=== PATIENT | male | born 1940 | race Two or more races ===

== ENCOUNTER 2023-10-08 09:57 | Inpatient (IN) | payer MEDICARE, OTHER, SELFPAY ==
[2023-10-06] VITALS (7 sets, daily range): BP systolic 112–144; BP diastolic 66–93; BMI 29.7; BMI 32.9
--- NOTE | 2023-10-06 12:36 | ED.GENMED ---
History of Present Illness
General
Chief Complaint: Abdominal Pain
Source: patient and spouse
Exam Limitations: none
Time Seen by Provider: 10/06/23 12:24
Nursing documentation reviewed up to this point in time: agreed with
History of Present Illness
History of Present Illness:
Patient to ED with complaint of abdominal pain, constipation. states he was seen by staff at Dr. Corral's office of hector cath change. Since then urine output has been low and he complains of abd. pain. reports dark urine. He has not
had BM 'in a few days'. Taking stool softeners without improvement. Denies fever/chills, vomiting, diarrhea. +nausea. Brought to ED by spouse for eval.
Past History
Past History
ED Past Medical History: HTN, Hypercholesterolemia, IDDM and Other (chronic indwelling hector, dementia)
ED Past Surgical History: None
Social History
Tobacco: Non-smoker
Alcohol: None
Drug: None
Personal:
Living: with family
Review of Systems
Review of Systems
Allergies reviewed?: Yes
All Other Systems: ROS reviewed and negative except as documented in HPI and ROS
Constitutional: Reports no symptoms
EENT: Reports no symptoms
Respiratory: Reports no symptoms
Cardiac: Reports no symptoms
ABD/GI: Reports abdominal pain and nausea
: Reports dark urine
Musculoskeletal: Reports no symptoms
Skin: Reports no symptoms
Neurological: Reports no symptoms
Psychiatric: Reports no symptoms
Phy Exam
General Physical Exam
General Presentation: moderate distress
General age: appears stated age
General Skin: warm and dry
General Habitus: normal
General Mental: alert
General Hydration: appears well hydrated
Cardiovascular Exam
Cardiovascular Exam: regular rate/rhythm and no edema
Pulmonary Exam
Pulmonary Exam: lungs clear and no respiratory distress
Gastrointestinal Exam
Gastrointestinal Exam: normal bowel sounds, no organomegaly and distended
Palpation: left lower quadrant: Severe tenderness and right lower quadrant: Severe tenderness
Musculoskeletal Exam
Musculoskeletal Exam: full ROM and neuro vasc intact
Skin Exam
Skin Exam: normal color, warm/dry and no rash
Psychiatric Exam
Psychiatric Exam: normal mood/affect
Course
Orders/Labs/Results
Orders:
Orders
10/06/23 12:35
Bladder Scan- Treatment ONCE
Abdomen Xray - 1 View [CR Abdomen - 1 View] Urgent
Comment:
Reason For Exam: constipation
10/06/23 13:20
Complete Blood Count/With Diff Urgent
Comprehensive Metabolic Panel Urgent
Lipase Urgent
Urinalysis Reflex To Culture Urgent
Date Specimen was Collected: 10/06/23
Time Specimen was Collected: 13:06
Urine Microscopic Reflex Cult Urgent
Urine Culture Urgent
DESTINY Source: U
Specimen Description:
Date Specimen was Collected: 10/06/23
Time Specimen was Collected: 13:06
10/06/23 Dinner
2000 calorie (17 carb) Diabetic
At Your Request: Full Participation
10/06/23 15:10
Lactic Acid Urgent
10/06/23 15:11
Notify MD As Directed
Notify physician if: Once Med Rec is completed. Thank you.
10/06/23 15:28
Magnesium Citrate [Citroma] 300 ml PO ONCE ONE
10/06/23 15:29
Admit/Transfer Patient As Directed
Co-Sign Provider:
Level of Care: Observation services
Assign to:: Medical/Surgical
Physician / Group: Hospitalist
Diagnosis: UTI, Retention, Constipation
PRN Pain Medication Management As Directed
May give lesser potent ordered pain med per pt: Yes
preference::
Protocol:: Medication orders for pain may be administered in a
manner that supports deferring to patient preference
when the pt is:
-Requesting an ordered lesser potent pain medication.
Least to most potent pain medications are defined as:
acetaminophen < NSAID < tramadol < opioids (morphine,
oxycodone, hydromorphone).
- Requesting a lesser dose of the same medication IF
ORDERED.
- Requesting a less intrusive route of administration
if both routes are prescribed by the provider (PO <
IV).
10/06/23 15:33
Code Status As Directed
Resuscitation Status: Full Code
10/06/23 15:36
0.9% Sodium Chloride 1000 ml [Nss] 1,000 ml IV BOLUS
10/06/23 16:00
CefTRIAXone [Rocephin] 1,000 mg IV Q24H
Sterile Water [Sterile Water For Injection] 10 ml IV Q24H
10/06/23 16:46
Bisacodyl [Dulcolax] 10 mg RECTAL [id number] PRN
Dextrose 50%-Water [Dextrose 50% Syringe] 12.5 grams IV [id number] PRN
Glucagon [GlucaGen] 1 mg IM PRN PRN
Insulin Aspart Corrective Low [Novolog Flexpen-Low Resistance] See Protocol SC AC
10/06/23 16:46
Activity As Directed
Activity Level: Ambulate
Bedside Glucose Monitoring As Directed
Frequency: AC&HS
Additional Instructions:: Change to q6h if pt on TPN, tube feeding or not eating
Vital Signs As Directed
Frequency: Per unit guidelines
DX Deep Vein Thrombosis Video Routine
10/06/23 18:00
Enoxaparin Sodium [Lovenox] 40 mg SC QPM
10/06/23 20:00
Docusate Sodium [Colace] 100 mg PO BID
Sennosides [Senokot] 8.6 mg PO BID
10/07/23 06:00
Basic Metabolic Panel IN AM
Complete Blood Count/No Diff IN AM
Glycohemoglobin (HgbA1c) IN AM
Magnesium IN AM
TSH IN AM
Vitamin B12 IN AM
10/07/23 08:00
Finasteride [Proscar] 5 mg PO DAILY
Polyethylene Glycol Powder [Miralax] 17 grams PO DAILY
Abnormal Lab Results
10/06/23 10/06/23
13:20 15:10
WBC 17.0 H 10^3/uL
(4.8-10.8)
RDW 15.2 H %
(11.5-14.5)
Abs Immat Gran (auto) 0.1 H 10^3/uL
(0-0.05)
Absolute Neuts (auto) 15.2 H 10^3/uL
(1.4-6.5)
Absolute Lymphs (auto) 0.8 L 10^3/uL
(1.2-3.4)
Absolute Monos (auto) 0.9 H 10^3/uL
(0.1-0.6)
Neutrophils % 89.2 H %
(42.2-75.2)
Lymphocytes % 4.8 L %
(20.5-51.1)
Carbon Dioxide 20 L mmol/L
(22-30)
BUN 71 H mg/dl
(9-20)
Creatinine 3.5 H mg/dL
(0.7-1.3)
Glucose 232 H mg/dl
(70-99)
Lactic Acid 2.7 H mmol/L
(0.7-2.0)
Ur Occult Blood Reflex 4+ A
(Negative)
Leukocyte Esterase Rfl 2+ A
(Negative)
Urine RBC 50-60 A /HPF
(0-2)
Urine Bacteria (Reflex) Many A
(Negative)
Urine Glucose 3+ A
(Negative)
10/06/23 13:20
10/06/23 13:20
Vital Signs
Initial and Last Documented VS:
Initial Vital Signs
Temp Pulse Resp BP Pulse Ox
98.2 F 115 20 122/77 97
10/06/23 11:32 10/06/23 11:32 10/06/23 11:32 10/06/23 11:32 10/06/23 11:32
Last Documented Vital Signs
Temp Pulse Resp BP Pulse Ox
98.0 F 105 16 141/86 96
10/06/23 17:00 10/06/23 17:00 10/06/23 17:00 10/06/23 17:00 10/06/23 17:00
*Critical Care Note
Total Time (30-74mins, 75-104mins- exclusive of procedures): Not Applicable
Update Note
Update Note:
Patient brought to ED by spouse for worsening lower abdominal pain, constipation, decreased urine output, dark urine. States hector cath was replaced on saturday and symptoms started shortly after that. Denies fever/chills, vomiting. Bladder scan
on arrival >1000cc. Hector cath replaced by RN, drained immediate 1L of urine. Abdomen now soft, nontender. Labs reviewed. Creat of 3.4 today. Will admit for INOCENCIO.
ED Attending Note
-
Portions of this chart may have been created with voice recognition software.� Occasional wrong word or��sound alike� substitutions may have occurred due to the inherent limitations of voice recognition software.
Discharge Plan
Departure
Patient Disposition: Admit
Date of Disposition: 10/06/23
Time of Disposition: 14:55
Admit to: Med/Surg
Presentation/result/management discussed w/ accepting MD/DO: Hospitalist
Patient with high blood pressure during this ER visit?: Yes
Condition: Fair
Covid-19: Not Applicable
Discharge Problem:
INOCENCIO (acute kidney injury)
Interventions
Interventions:
*Risk Screen - Suicide Last Done: 10/06/23 11:32
*General Assessment Last Done: 10/06/23 13:07
*Neglect/Abuse Screening Last Done: 10/06/23 11:32
ED- Fall Risk Assessment Last Done: 10/06/23 11:32
*ED COVID-19 Vaccine History Last Done: 10/06/23 13:10
*Nursing Disposition Last Done: 10/06/23 16:41
SM-Jcpbtu-Gmdqxjtylr Assessment Last Done: 10/06/23 13:07
Discharge Date and Time
Discharge Date/Time: 10/06/23 16:41
[2023-10-06 13:37] LABS: Urine Albumin Trace (Neg - Trace); Urine Bilirubin Negative (Negative); Urine Character Very Cloudy (Clear); Urine Color Straw; Urine Glucose 3+ (Negative); Urine Ketone Negative (Negative); Urine Leukocyte 2+ (Negative); Urine Nitrite Negative (Negative); Urine Occult Blood 4+ (Negative); Urine Urobilinogen Negative (Neg - 1+)
[2023-10-06 13:49] LABS: Urine Squamous Cell 0-2 /LPF (Few)
[2023-10-06 13:50] LABS: Urine Bacteria Many (Negative); Urine Red Blood Cell 50-60 /HPF (0-2)
[2023-10-06 14:01] LABS: % Basophils 0.2 % (0-2); % Immature Granulocytes 0.4 % (0-0.5); % Lymphocytes 4.8 % (20.5-51.1); % Monocytes 5.4 % (1.7-9.3); % Neutrophils 89.2 % (42.2-75.2); Absolute Immature Granulocytes 0.1 10^3/uL (0-0.05); Absolute Lymphocytes 0.8 10^3/uL (1.2-3.4); Absolute Monocytes 0.9 10^3/uL (0.1-0.6); Absolute Neutrophils 15.2 10^3/uL (1.4-6.5); Hematocrit 40.1 % (39.0-52.0); Hemoglobin 13.7 g/dL (13.0-18.0); Mean Corp Hgb Conc. 34.2 g/dL (33.0-37.0); Mean Corpuscular Hgb 28.1 pg (27.0-31.0); Mean Corpuscular Volume 82.2 fL (80.0-94.0); Mean Platelet Volume 9.1 fL (7.4-10.4); Nucleated Red Blood Cells % 0 % (-); Platelet Count 239 10^3/uL (130-400); Red Blood Cell Count 4.88 10^6/uL (4.70-6.10); Red Cell Dist. Width 15.2 % (11.5-14.5)
[2023-10-06 14:21] LABS: ALT (SGPT) 25 U/L (0-50); AST (SGOT) 30 U/L (17-59); Albumin 4.1 g/dl (3.5-5.0); Alkaline Phosphatase 119 U/L (38-126); Blood Urea Nitrogen 71 mg/dl (9-20); Calcium 9.4 mg/dl (8.4-10.2); Carbon Dioxide 20 mmol/L (22-30); Chloride 105 mmol/L (98-107); Estimated Creatinine Clearance 17 ml/min; Glucose 232 mg/dl (70-99); Lipase 60 U/L (23-300); Potassium 3.7 mmol/L (3.5-5.1); Sodium 140 mmol/L (135-145); Total Bilirubin 1.1 mg/dl (0.2-1.3); Total Protein 7.4 g/dl (6.3-8.2); eGFR 16.82
--- NOTE | 2023-10-06 15:07 | HPS.HSE ---
Family Physician
-
Family Physician: Tyrel Aamnda
Chief Complaint
-
Abdominal pain
History of Present Illness
83-year-old male with abdominal pain and constipation. Patient was seen by Dr. Isaac for a Amador catheter change. Since then the urine output has gone down and also had dark urine. He has also been constipated.
Medical History
Past Medical History
Past Medical History: Reports Other
Additional Past Medical History:
Cognitive impairment, hypertension, hyperlipidemia, prostate disease, chronic Amador, ambulatory dysfunction, diabetes, neurogenic bladder, enlarged prostate
Past Surgical History: Reports None
Social History
Tobacco: Former Smoker
Alcohol: None
Drug: None
Personal:
Living: With Family
Employment: Retired
Family History
Family History: Diabetes (father and mother)
Allergies / Home Medications
Allergies reflects when Allergies were last updated in [employer].
Home Medications with original date entered in [employer]
Allergy/Medication List:
Meds list not available. left and pt not sure.
If medication reconciliation has not been performed, why?: Medication List N/A
Review of Systems
-
A 12 point ROS was completed and negative except as noted: Yes
Abdomen/GI: Reports Abdominal Pain (resolved) and Constipated
: Reports Difficulty Voiding and Amador
Physical Exam
Vital Signs
Vital Signs
Temp Pulse Resp BP Pulse Ox
98.2 F 115 20 112/71 100
10/06/23 11:32 10/06/23 11:32 10/06/23 11:32 10/06/23 13:48 10/06/23 13:48
Physical Exam
General: Comfortable and Conversant; No Pain
Respiratory: Clear
Cardiac: S1/S2 and Irregular Rhythm
GI: Soft, Non Tender and Normal Bowel Sounds
Neuro: AO x 3 and Nonfocal/grossly intact
Psych: Calm
Laboratory Results
-
10/06/23 13:20
10/06/23 13:20
Laboratory Results
Total Bilirubin 1.1 mg/dl (0.2-1.3) 10/06/23 13:20
AST 30 U/L (17-59) 10/06/23 13:20
ALT 25 U/L (0-50) 10/06/23 13:20
Alkaline Phosphatase 119 U/L (38-126) 10/06/23 13:20
Lipase 60 U/L (23-300) 10/06/23 13:20
Impression/Plan
-
IMPRESSION/PLAN:
# Acute urinary retention
Amador replaced with 1 L of urine output
Ceftriaxone ordered based on previous cultures with E. coli
# Constipation
Likely secondary to bladder being distended
Patient does not want enema therefore magnesium citrate ordered
Check TSH
MiraLAX and Senokot
# Hypertension
Continue amlodipine and metoprolol after verification
# Hyperlipidemia
Continue statin after dose verification
# Diabetes type 2
Check hemoglobin A1c
Accu-Cheks and sliding scale coverage
Previous list states patient was on glargine 40 units, insulin NovoLog 10 units before meals and Trulicity 1.5 mg on Sundays
Needs dose verified
# Enlarged prostate-continue finasteride
# Obesity per BMI
# Neurogenic bladder with chronic Amador
# Ambulatory dysfunction
# Ex-smoker
# DVT prophylaxis-Lovenox
# Full code
[2023-10-06 15:31] LABS: Lactic Acid 2.7 mmol/L (0.7-2.0)
--- NOTE | 2023-10-06 15:48 | PHANOTE ---
med rec zulay(10/06/23)-patient's spouse is primary photogrammetric compilation specialist, brought drugs into ED, but left before I was able to interview. Another provider noted the names of the drugs and gave the list to me. With that list, [facility], and [facility], compiled a list
of medications. Will call later, as to not call while she is driving home.
[2023-10-06] MEDS: CITROMA 300 ML PO (16:12)
[2023-10-06] MEDS: ROCEPHIN 1000 MG IV (16:12)
[2023-10-06] MEDS: STERILE WATER FOR INJECTION 10 ML IV (16:13)
[2023-10-06] MEDS: NSS 1000 IV (16:14)
[2023-10-06 17:52] LABS: Glucose - Point of Care 262 mg/dl (70-99)
[2023-10-06] MEDS: LIPITOR 40 MG PO (17:57)
[2023-10-06] MEDS: NOVOLOG FLEXPEN 5 UNITS SC (17:57)
[2023-10-06] MEDS: NOVOLOG FLEXPEN-LOW RESISTANCE 3 UNITS SC (17:57)
[2023-10-06] MEDS: SENOKOT 8.6 MG PO (19:54)
[2023-10-06] MEDS: COLACE 100 MG PO (19:54)
[2023-10-06 21:29] LABS: Glucose - Point of Care 238 mg/dl (70-99)
[2023-10-06] MEDS: LANTUS 0.3 UNITS SC (21:42)
[2023-10-07] MEDS: HEPARIN 5000 UNITS SC ×4 (00:22→23:50)
[2023-10-07 07:13] LABS: Glucose - Point of Care 159 mg/dl (70-99)
[2023-10-07 07:35] VITALS: BP 128/69
[2023-10-07 08:15] LABS: Hematocrit 36.8 % (39.0-52.0); Hemoglobin 12.6 g/dL (13.0-18.0); Mean Corp Hgb Conc. 34.2 g/dL (33.0-37.0); Mean Corpuscular Hgb 28.6 pg (27.0-31.0); Mean Corpuscular Volume 83.4 fL (80.0-94.0); Mean Platelet Volume 10.1 fL (7.4-10.4); Platelet Count 226 10^3/uL (130-400); Red Blood Cell Count 4.41 10^6/uL (4.70-6.10); Red Cell Dist. Width 15.1 % (11.5-14.5); White Blood Cell Count 12.9 10^3/uL (4.8-10.8)
[2023-10-07 08:21] LABS: Blood Urea Nitrogen 66 mg/dl (9-20); Calcium 8.6 mg/dl (8.4-10.2); Carbon Dioxide 22 mmol/L (22-30); Chloride 106 mmol/L (98-107); Estimated Creatinine Clearance 24 ml/min; Glucose 168 mg/dl (70-99); Magnesium 2.9 mg/dl (1.6-2.3); Sodium 140 mmol/L (135-145); eGFR 21.98
[2023-10-07] MEDS: SENOKOT 8.6 MG PO ×2 (08:23→20:46)
[2023-10-07] MEDS: COLACE 100 MG PO ×2 (08:23→20:46)
[2023-10-07] MEDS: NORVASC 5 MG PO (08:23)
[2023-10-07] MEDS: PROSCAR 5 MG PO (08:23)
[2023-10-07] MEDS: MIRALAX 17 GRAMS PO (08:24)
[2023-10-07] MEDS: DESENEX/MITRAZOL/ZEASORB 1 APPLIC TOPICAL ×2 (08:28→20:51)
[2023-10-07 08:45] LABS: TSH 1.98 uIU/ml (0.47-4.68)
[2023-10-07 09:04] LABS: Vitamin B12 715 pg/ml (239-931)
[2023-10-07] MEDS: NOVOLOG FLEXPEN-LOW RESISTANCE 1 UNITS SC (09:22)
[2023-10-07] MEDS: NOVOLOG FLEXPEN 5 UNITS SC ×3 (09:22→13:37)
[2023-10-07 09:38] LABS: Glycohemoglobin (HgbA1c) 8.2 % (4.0-5.6)
[2023-10-07 11:42] LABS: Glucose - Point of Care 267 mg/dl (70-99)
[2023-10-07] MEDS: NOVOLOG FLEXPEN-LOW RESISTANCE 3 UNITS SC (13:31)
[2023-10-07] MEDS: KCL 40 MEQ PO (13:32)
[2023-10-07 15:20] VITALS: BP 134/64
--- NOTE | 2023-10-07 15:26 | W.PN.HOSP.TC ---
Addendum entered and electronically signed by Pura Engel MD 10/07/23 15:41:
Acute kidney injury on CKD stage III-likely secondary to retention
Better with IV fluids
Follow creatinine
Original Note:
Today's Communication/Plan
-
Repeat urinalysis
Replace potassium
PT OT
Insulin adjusted
Assessment / Plan
Assessment / Plan
CVS: S1-S2 normal
Chest: CTA B/L
Abdomen: Soft, NT / Bowel sounds present
Extremities: No edema, normal pulses
# Acute urinary retention
Amador replaced with 1 L of urine output in the ER
Ceftriaxone ordered based on previous cultures with E. coli
White count improved
# Lactic acidosis-repeat labs
# Hypokalemia-replace
# Constipation
Likely secondary to bladder being distended
Had several bowel movements.
# Hypertension
Continue amlodipine and metoprolol
# Hyperlipidemia
Continue statin
# Diabetes type 2
Hemoglobin A1c 8.2
Accu-Cheks and sliding scale coverage
Spoke to patient was on glargine 40 units, insulin NovoLog 104units before meals and Trulicity 1.5 mg on Sundays
# Enlarged prostate-continue finasteride
# Obesity per BMI
# Neurogenic bladder with chronic Amador
# Ambulatory dysfunction
# Ex-smoker
# DVT prophylaxis-REGINE
# Full code
Discussed with nursing
Discussed with patient's . Verified all the medicines and doses. Changes made to med rec.
time spent over 50 min
Anticipated Discharge: 24 - 48 hours
Subjective/Interval History
-
Date of Service: October 07, 2023
Objective Data
-
Labs:
Laboratory Results
10/07/23
07:17
WBC 12.9 H
Hgb 12.6 L
Hct 36.8 L
Plt Count 226
Sodium 140
Potassium 3.0 L
Chloride 106
Carbon Dioxide 22
BUN 66 H
Creatinine 2.8 H
Glucose 168 H
Calcium 8.6
Vital Signs:
Vital Signs
Temp Pulse Resp BP Pulse Ox
97.7 F 87 18 128/69 95
10/07/23 07:35 10/07/23 08:23 10/07/23 07:35 10/07/23 08:23 10/07/23 07:35
I&O
10/06/23 10/07/23 10/08/23
06:59 06:59 06:59
Intake Total 480 / 480
Output Total 2550 / 2550
Balance -2069 / -2069
[2023-10-07 16:48] LABS: Glucose - Point of Care 217 mg/dl (70-99)
[2023-10-07] MEDS: LIPITOR 40 MG PO (17:38)
[2023-10-07] MEDS: ROCEPHIN 1000 MG IV (17:39)
[2023-10-07] MEDS: STERILE WATER FOR INJECTION 10 ML IV (17:50)
[2023-10-07] MEDS: NOVOLOG FLEXPEN 14 UNITS SC (17:51)
[2023-10-07] MEDS: NOVOLOG FLEXPEN-LOW RESISTANCE 2 UNITS SC (17:51)
[2023-10-07] MEDS: TOPROL XL 25 MG PO (20:28)
[2023-10-07 21:36] LABS: Glucose - Point of Care 195 mg/dl (70-99)
[2023-10-07] MEDS: LANTUS 0.37 UNITS SC (22:05)
[2023-10-07 23:00] VITALS: BP 114/60
[2023-10-08 00:19] LABS: Lactic Acid 1.5 mmol/L (0.7-2.0)
[2023-10-08 07:20] VITALS: BP 113/63
[2023-10-08 07:20] LABS: Hematocrit 35.1 % (39.0-52.0); Hemoglobin 12.1 g/dL (13.0-18.0); Mean Corp Hgb Conc. 34.5 g/dL (33.0-37.0); Mean Corpuscular Hgb 28.5 pg (27.0-31.0); Mean Corpuscular Volume 82.6 fL (80.0-94.0); Mean Platelet Volume 10.1 fL (7.4-10.4); Platelet Count 230 10^3/uL (130-400); Red Blood Cell Count 4.25 10^6/uL (4.70-6.10); Red Cell Dist. Width 14.9 % (11.5-14.5); White Blood Cell Count 9.4 10^3/uL (4.8-10.8)
[2023-10-08 07:23] LABS: Glucose - Point of Care 218 mg/dl (70-99)
[2023-10-08 07:58] LABS: Blood Urea Nitrogen 57 mg/dl (9-20); Calcium 8.6 mg/dl (8.4-10.2); Carbon Dioxide 23 mmol/L (22-30); Chloride 107 mmol/L (98-107); Estimated Creatinine Clearance 28 ml/min; Glucose 206 mg/dl (70-99); Potassium 3.3 mmol/L (3.5-5.1); Sodium 139 mmol/L (135-145); eGFR 26.44
[2023-10-08] MEDS: NOVOLOG FLEXPEN 14 UNITS SC ×3 (09:07→17:24)
[2023-10-08] MEDS: HEPARIN 5000 UNITS SC ×2 (09:08→17:19)
[2023-10-08] MEDS: SENOKOT 8.6 MG PO ×2 (09:09→19:40)
[2023-10-08] MEDS: PROSCAR 5 MG PO (09:09)
[2023-10-08] MEDS: NORVASC 5 MG PO (09:09)
[2023-10-08] MEDS: KCL 40 MEQ PO (09:09)
[2023-10-08] MEDS: TOPROL XL 25 MG PO ×2 (09:09→19:40)
[2023-10-08] MEDS: NOVOLOG FLEXPEN-LOW RESISTANCE 2 UNITS SC (09:10)
[2023-10-08] MEDS: COLACE 100 MG PO ×2 (09:10→19:40)
[2023-10-08] MEDS: DESENEX/MITRAZOL/ZEASORB 1 APPLIC TOPICAL ×2 (09:10→19:41)
[2023-10-08] MEDS: MIRALAX PO (09:12)
[2023-10-08 11:45] LABS: Glucose - Point of Care 183 mg/dl (70-99)
[2023-10-08 13:01] VITALS: BP 125/71
[2023-10-08 13:04] VITALS: BP 125/71
[2023-10-08] MEDS: NOVOLOG FLEXPEN-LOW RESISTANCE 1 UNITS SC (13:19)
--- NOTE | 2023-10-08 14:22 | W.PN.HOSP.TC ---
Today's Communication/Plan
-
PT eval
Continue AB
Assessment / Plan
Assessment / Plan
CVS: S1-S2 normal
Chest: CTA B/L
Abdomen: Soft, NT / Bowel sounds present
Extremities: No edema, normal pulses
# Acute urinary retention
Amador replaced with 1 L of urine output in the ER
Ceftriaxone ordered based on previous cultures with E. coli
White count improved
Urine Cultures are negative. Blood cultures ordered yesterday has not been sent. At this point cultures may not come back positive but given his retention, white count on admission I will treat with cephalosporins for a total of 1 week course.
# Lactic acidosis-resolved
# Hypokalemia-replace
# Constipation
Likely secondary to bladder being distended
Had several bowel movements.
# Hypertension
Continue amlodipine and metoprolol
# Hyperlipidemia-Continue statin
# Diabetes type 2
Hemoglobin A1c 8.2
Accu-Cheks and sliding scale coverage
Spoke to patient was on glargine 40 units, insulin NovoLog 14 units before meals and Trulicity 1.5 mg on Sundays
# Enlarged prostate-continue finasteride
# Obesity per BMI
# Neurogenic bladder with chronic Amador
# Ambulatory dysfunction
# Ex-smoker
# DVT prophylaxis-REGINE
# Full Code
Discussed with nursing
Discussed with patient's at bed side
D/W . He will see pt in office soon after discharge.
I called Dr.Joseph Andrade's office twice to get through to see what his baseline creatinine is . Went through prompts and gets disconnected.
Requested records.
Time spent over 50 min
Anticipated Discharge: Within 24 hours
Subjective/Interval History
-
Date of Service: October 08, 2023
Objective Data
-
Labs:
Laboratory Results
10/08/23
06:56
WBC 9.4
Hgb 12.1 L
Hct 35.1 L
Plt Count 230
Sodium 139
Potassium 3.3 L
Chloride 107
Carbon Dioxide 23
BUN 57 H
Creatinine 2.4 H
Glucose 206 H
Calcium 8.6
Vital Signs:
Vital Signs
Temp Pulse Resp BP Pulse Ox
98.3 F 94 18 113/63 94
10/08/23 07:20 10/08/23 07:20 10/08/23 07:20 10/08/23 07:20 10/08/23 07:20
I&O
10/07/23 10/08/23 10/09/23
06:59 06:59 06:59
Intake Total 480 / 480 480 / 480 900 / 900
Output Total 2550 / 2550 1000 / 1000
Balance -2070 / -2070 -520 / -520 900 / 900
[2023-10-08 15:15] VITALS: BP 112/61
[2023-10-08 17:08] LABS: Glucose - Point of Care 121 mg/dl (70-99)
[2023-10-08] MEDS: NOVOLOG FLEXPEN-LOW RESISTANCE SC (17:18)
[2023-10-08] MEDS: STERILE WATER FOR INJECTION 10 ML IV (17:21)
[2023-10-08] MEDS: ROCEPHIN 1000 MG IV (17:21)
[2023-10-08] MEDS: LIPITOR 40 MG PO (17:24)
[2023-10-08 21:12] LABS: Glucose - Point of Care 125 mg/dl (70-99)
[2023-10-08] MEDS: LANTUS 0.4 UNITS SC (22:07)
[2023-10-08 23:18] VITALS: BP 137/62
[2023-10-09] MEDS: HEPARIN 5000 UNITS SC ×2 (00:28→09:37)
[2023-10-09 07:35] VITALS: BP 151/82
[2023-10-09 08:07] LABS: Glucose - Point of Care 145 mg/dl (70-99)
[2023-10-09 08:54] LABS: Blood Urea Nitrogen 44 mg/dl (9-20); Calcium 8.6 mg/dl (8.4-10.2); Carbon Dioxide 23 mmol/L (22-30); Chloride 108 mmol/L (98-107); Estimated Creatinine Clearance 34 ml/min; Glucose 138 mg/dl (70-99); Potassium 3.6 mmol/L (3.5-5.1); Sodium 139 mmol/L (135-145); eGFR 32.91
[2023-10-09] MEDS: NOVOLOG FLEXPEN-LOW RESISTANCE SC ×2 (09:31→12:23)
[2023-10-09] MEDS: MIRALAX PO (09:35)
[2023-10-09] MEDS: COLACE PO (09:35)
[2023-10-09] MEDS: NOVOLOG FLEXPEN 14 UNITS SC ×2 (09:37→12:54)
[2023-10-09] MEDS: DESENEX/MITRAZOL/ZEASORB 1 APPLIC TOPICAL (09:37)
[2023-10-09] MEDS: NORVASC 5 MG PO (09:38)
[2023-10-09] MEDS: TOPROL XL 25 MG PO (09:39)
[2023-10-09] MEDS: PROSCAR 5 MG PO (09:39)
[2023-10-09] MEDS: SENOKOT PO (09:40)
[2023-10-09 12:20] LABS: Glucose - Point of Care 135 mg/dl (70-99)
--- NOTE | 2023-10-09 13:37 | W.PN.HOSP.TC ---
Today's Communication/Plan
-
Discharge
Assessment / Plan
Assessment / Plan
CVS: S1-S2 normal
Chest: CTA B/L
Abdomen: Soft, NT / Bowel sounds present
Extremities: No edema, normal pulses
# Acute urinary retention
Amador replaced with 1 L of urine output in the ER
Ceftriaxone ordered based on previous cultures with E. coli
White count improved
Urine Cultures are negative. Blood cultures ordered yesterday has not been sent. At this point cultures may not come back positive but given his retention, white count on admission I will treat with cephalosporins for a total of 1 week course.
# Lactic acidosis-resolved
# Hypokalemia-replaced
# Constipation
Likely secondary to bladder being distended
Had several bowel movements.
# Hypertension
Continue amlodipine and metoprolol
# Hyperlipidemia-Continue statin
# Diabetes type 2
Hemoglobin A1c 8.2
Accu-Cheks and sliding scale coverage
Spoke to patient was on glargine 40 units, insulin NovoLog 14 units before meals and Trulicity 1.5 mg on Sundays
# Enlarged prostate-continue finasteride
# Obesity per BMI
# Neurogenic bladder with chronic Amador
# Ambulatory dysfunction
# Ex-smoker
# DVT prophylaxis-REGINE
# Full Code
Discussed with nursing
Discussed with
I called Dr.Joseph Andrade's office twice to get through to see what his baseline creatinine is . Went through prompts and gets disconnected.
Requested records.
No records yet.
Creatinine has improved.
Patient anxious to go. We will discharge. I have given a prescription for BMP to be done in 1 week. told me yesterday daughter Is the PCP will send the results to him. Also to Dr. Isaac.
Discussed with case management will arrange visiting nurses/home PT.
Discharge coordination time 35 min
Anticipated Discharge: Today
Subjective/Interval History
-
Date of Service: October 09, 2023
Objective Data
-
Labs:
Laboratory Results
10/09/23
07:44
Sodium 139
Potassium 3.6
Chloride 108 H
Carbon Dioxide 23
BUN 44 H
Creatinine 2.0 H
Glucose 138 H
Calcium 8.6
Vital Signs:
Vital Signs
Temp Pulse Resp BP Pulse Ox
98.1 F 91 12 151/82 94
10/09/23 07:35 10/09/23 09:38 10/09/23 07:35 10/09/23 09:38 10/09/23 09:45
I&O
10/08/23 10/09/23 10/10/23
06:59 06:59 06:59
Intake Total 480 / 480 1620 / 1620
Output Total 1000 / 1000 1350 / 1350
Balance -520 / -520 270 / 270
--- NOTE | 2023-10-09 13:47 | W.DS.TRANS ---
Addendum entered and electronically signed by Pura Engel MD 10/09/23 14:53:
Dictation- [id number]
Original Note:
DC Summary - [employer]
-
Discharge Instructions:
Discharge Diagnosis/Procedures Urinary retention, constipation, INOCENCIO,
hypokalemia, diabetes, hyperlipidemia, enlarged
prostate, chronic Amador
Diet Diabetic, Carb Controlled
Activity As tolerated
Blood Work bmp 1 week
Other Services VN
Instructions:
Stand-Alone Forms:
Changes to Home Medications: Yes
Discharge Medications:
DC Medications w/original date entered in [employer]
amlodipine 5 mg tablet 5 mg PO DAILY Blood Pressure 10/17/22
atorvastatin 40 mg tablet 40 mg PO QPM High Cholesterol 10/17/22
finasteride 5 mg tablet 5 mg PO DAILY Urinary Issue 10/17/22
insulin lispro 100 unit/mL subcutaneous pen (Humalog KwikPen (U-100) Insulin) 14 unit SC AC Fluid Retention/Swelling 10/17/22
insulin glargine 100 unit/mL (3 mL) subcutaneous pen (Lantus Solostar U-100 Insulin) 40 unit (0.4 mL) SC HS Diabetes #0 mL 10/21/22
dapagliflozin propanediol 10 mg tablet (Farxiga) 10 mg PO DAILY Diabetes 10/06/23
dulaglutide 1.5 mg/0.5 mL subcutaneous pen injector (Trulicity) 1.5 mg SC RAWLS Diabetes 10/06/23
hydrochlorothiazide 25 mg tablet 25 mg PO DAILY Fluid Retention/Swelling 10/06/23
metoprolol succinate 25 mg tablet,extended release 24 hr 25 mg PO BID Blood Pressure 10/06/23
docusate sodium 100 mg capsule 100 mg PO BID Constipation #0 caps 10/08/23
polyethylene glycol 3350 17 gram oral powder packet (HealthyLax) 17 g PO DAILY Constipation #0 ea 10/08/23
cefuroxime axetil 250 mg tablet 250 mg PO BID Infection 4 days #8 tabs 10/09/23
Home Medication Changes
new
docusate sodium 100 mg capsule 100 mg PO BID Constipation #0 caps 10/08/23
polyethylene glycol 3350 17 gram oral powder packet (HealthyLax) 17 g PO DAILY Constipation #0 ea 10/08/23
cefuroxime axetil 250 mg tablet 250 mg PO BID Infection 4 days #8 tabs 10/09/23
Pending Results: No
[2023-10-09 14:03] VITALS: BP 127/68
--- NOTE | 2023-10-09 14:07 | CM ---
CM spoke with Dr. Engel; plan for discharge today to home with home care. Call to Carlos' who advised that he had previously had home care services, but not since April. [facility] was arranged when Carlos was discharged from [facility] earlier
this year; Mrs. Bartlett requests the same agency again.
Referral sent to [facility] via [facility].
Plan: Discharge to home with [facility]; to transport today.
== END 2023-10-09 14:28 | disposition home health service (06) | DRG 690 ==
LOC: 4 EAST ACU 09:57
PROVIDERS: Nurse Practitioner; ADMITTING PHYSICIAN Hospitalist; EMERGENCY PHYSICIAN Emergency Medicine; FAMILY PHYSICIAN Internal Medicine
DX: N39.0 Urinary tract infection, site not specified (principal); N17.9 Acute kidney failure, unspecified; E87.20 Acidosis, unspecified; R33.8 Other retention of urine; K59.00 Constipation, unspecified; E87.6 Hypokalemia; E11.9 Type 2 diabetes mellitus without complications; N40.0 Benign prostatic hyperplasia without lower urinary tract symptoms; E78.00 Pure hypercholesterolemia, unspecified; I10 Essential (primary) hypertension; N31.9 Neuromuscular dysfunction of bladder, unspecified; F03.90 Unspecified dementia, unspecified severity, without behavioral disturbance, psychotic disturbance, mood disturbance, and anxiety; E66.9 Obesity, unspecified; Z68.32 Body mass index [BMI] 32.0-32.9, adult; Z79.4 Long term (current) use of insulin; Z87.891 Personal history of nicotine dependence
CPT/HCPCS: 51702; 51798; 74018; 80048; 80053; 81003; 81015; 82607; 82962; 83036; 83605; 83690; 83735; 84443; 85025; 85027; 87086; 97163; 97166; 99285

== ENCOUNTER 2023-10-19 08:40 | Emergency (ER) | payer MEDICARE, OTHER, SELFPAY ==
[2023-10-19 08:42] VITALS: BP 129/69
[2023-10-19 09:26] VITALS: BMI 33.2
--- NOTE | 2023-10-19 09:41 | ED.GENMED ---
History of Present Illness
General
Chief Complaint: Abdominal Pain
Source: patient
Exam Limitations: none
Time Seen by Provider: 10/19/23 08:51
Nursing documentation reviewed up to this point in time: agreed with
History of Present Illness
History of Present Illness:
Pt is an 83 yr old male with past medical history of enlarged prostate hyperlipidemia chronic Hector constipation diabetes hyperkalemia brought to the ER by his for evaluation of abdominal pain. reports patient has a chronic Hector
catheter and she noticed blood in the urine last night and although there is normal urine color today patient was complaining of lower abdominal pain. He also has the urge to urinate despite catheter being in place. She does report it is draining
normally. Patient was admitted October 05 to October 08 for urinary retention with Hector at that time. At that time his creatinine was elevated on admission which did come down after Hector placement.
Nurse reports this is a 50pt has approx 650 ml of retained urine despite hector bag.
Past History
Past History
ED Past Medical History: HTN, Hypercholesterolemia, IDDM and Other (chronic indwelling hector, dementia)
ED Past Surgical History: None
Social History
Tobacco: Non-smoker
Alcohol: None
Drug: None
Personal:
Living: with family
Review of Systems
Review of Systems
Allergies reviewed?: Yes
Other source history: family
All Other Systems: ROS reviewed and negative except as documented in HPI and ROS
Constitutional: Reports no symptoms; Denies fever, fatigue or chills
Respiratory: Reports no symptoms
Cardiac: Reports no symptoms
ABD/GI: Reports abdominal pain; Denies nausea or vomiting
: Reports other (Discomfort, urge to urinate despite Hector being in place)
Phy Exam
General Physical Exam
General Presentation: no apparent distress
General age: appears stated age
General Skin: warm and dry
General Habitus: elderly
General Mental: alert
General Hydration: appears well hydrated
Cardiovascular Exam
Cardiovascular Exam: regular rate/rhythm, no murmur and normal peripheral pulses
Pulmonary Exam
Pulmonary Exam: lungs clear and no respiratory distress
Gastrointestinal Exam
Gastrointestinal Exam: soft and other (Mild suprapubic tenderness)
Neurological Exam
Neurological Exam: alert and oriented x3
Musculoskeletal Exam
Musculoskeletal Exam: full ROM
Skin Exam
Skin Exam: normal color and warm/dry
Psychiatric Exam
Psychiatric Exam: normal mood/affect
Course
Orders/Labs/Results
Orders:
Orders
10/19/23 09:16
Bladder Scan- Treatment ONCE
10/19/23 09:43
Hector Placement- Treatment ONCE
Reason for insertion: Acute Retention
IV Insert/Care/Rem.- Treatment PRN
10/19/23 09:53
Lidocaine 2% [Lidocaine Uro-Jet 2%] 1 syringe .ROUTE .K-MED ONE
10/19/23 10:10
Urinalysis Reflex To Culture Urgent
Date Specimen was Collected: 10/19/23
Time Specimen was Collected: 09:45
10/19/23 10:38
Basic Metabolic Panel Urgent
Complete Blood Count/With Diff Urgent
10/19/23 11:23
Electrocardiogram (*1) Stat
Reason for Study: CAD
EKG- Treatment ONCE
10/19/23 11:24
Electrocardiogram (*1) Urgent
10/19/23 12:22
Add On - Microbiology Urgent
Tests Added?: urine culture
Abnormal Lab Results
10/19/23 10/19/23
10:10 10:38
WBC 14.9 H 10^3/uL
(4.8-10.8)
RDW 15.1 H %
(11.5-14.5)
Abs Immat Gran (auto) 0.1 H 10^3/uL
(0-0.05)
Absolute Neuts (auto) 11.9 H 10^3/uL
(1.4-6.5)
Absolute Monos (auto) 0.9 H 10^3/uL
(0.1-0.6)
Neutrophils % 80.0 H %
(42.2-75.2)
Lymphocytes % 11.7 L %
(20.5-51.1)
BUN 36 H mg/dl
(9-20)
Creatinine 1.8 H mg/dL
(0.7-1.3)
Glucose 225 H mg/dl
(70-99)
Urine Glucose 3+ A
(Negative)
10/19/23 10:38
10/19/23 10:38
Vital Signs
Initial and Last Documented VS:
Initial Vital Signs
Temp Pulse Resp BP Pulse Ox
98.7 F 95 20 129/69 98
10/19/23 08:42 10/19/23 08:42 10/19/23 08:42 10/19/23 08:42 10/19/23 08:42
Last Documented Vital Signs
Temp Pulse Resp BP Pulse Ox
98.7 F 95 20 129/69 97
10/19/23 08:42 10/19/23 08:42 10/19/23 08:42 10/19/23 08:42 10/19/23 09:32
Supervisor M[facility] consulted with Physician
Supervisor M[facility] consulted with physician?: Yes
Name of Physician Consulted: Dr Redman
MDM/Problems Addressed
Differential Diagnosis Includes:
not limited to: UTI urinary retention
MDM/Problems Addressed:
Pain patient is 83-year-old male with chronic Hector presents to the ER with abdominal pain and urge to urinate despite Hector catheter being in place. reports patient had blood in the urine bag yesterday but that had resolved today. On exam
patient was retaining approximately 650 mL of urine by bladder scan as per nurse. Patient was mildly tender in the suprapubic area. New Hector was inserted (Size 14 ) and drained clear yellow urine nurse reports small clot initially. Patient
denies any fevers and is afebrile here white count minimally elevated patient has a history of recent kidney injury during last hospitalization from urinary retention. That time he was discharged October 08. Patient's kidney function is actually
better than it was on discharge at the end of September. His BUN is 36 creatinine 1.8 which is improved from last hospitalization. His potassium was clotted here however his last potassium was normal and he had no history of elevated potassium in the
past. He was stuck multiple times.
patient feeling much better since catheter is draining will DC with outpatient follow-up family doctor for repeat lab recheck including potassium and renal function and will DC with urology.
*Pulse Oximetry
Patient hypoxic: no
*Critical Care Note
Total Time (30-74mins, 75-104mins- exclusive of procedures): Not Applicable
ED Attending Note
-
Portions of this chart may have been created with voice recognition software.� Occasional wrong word or��sound alike� substitutions may have occurred due to the inherent limitations of voice recognition software.
Discharge Plan
Departure
Patient Disposition: Home (Routine Discharge)
Date of Disposition: 10/19/23
Time of Disposition: 12:17
Patient with high blood pressure during this ER visit?: Yes
Condition: Fair
Covid-19: Not Applicable
Discharge Problem:
Acute urinary retention
Instructions: Urinary retention
Prescriptions:
No Action
atorvastatin 40 mg tablet
40 mg PO QPM
amlodipine 5 mg tablet
5 mg PO DAILY
finasteride 5 mg tablet
5 mg PO DAILY
insulin lispro [Humalog KwikPen Insulin] 100 unit/mL insulin pen
14 unit SC AC
insulin glargine [Lantus Solostar U-100 Insulin] 100 unit/mL (3 mL) insulin pen
40 unit SC HS Qty: 0 0RF
hydrochlorothiazide 25 mg Tablet
25 mg PO DAILY
metoprolol succinate 25 mg Tablet Extended Release 24 Hr
25 mg PO BID
dapagliflozin propanediol [Farxiga] 10 mg Tablet
10 mg PO DAILY
Trulicity 1.5 mg/0.5 mL Pen Injector
1.5 mg SC RAWLS
polyethylene glycol 3350 [HealthyLax] 17 gram Powder In Packet
17 g PO DAILY Qty: 0 0RF
docusate sodium 100 mg Capsule
100 mg PO BID Qty: 0 0RF
cefuroxime axetil 250 mg tablet
250 mg PO BID 4 Days Qty: 8 0RF
Referrals:
Francis Andrade MD [Family Provider] -
Beltran Childs MD [Active] -
Activity Restrictions/Additional Instructions:
As discussed follow-up with urology in next several days for urinary retention. A new Hector catheter was placed.Return if any worsening of symptoms.
Interventions
Interventions:
*Risk Screen - Suicide Last Done: 10/19/23 08:42
*General Assessment Last Done: 10/19/23 08:42
*Neglect/Abuse Screening Last Done: 10/19/23 08:42
ED- Fall Risk Assessment Last Done: 10/19/23 09:33
*ED COVID-19 Vaccine History Last Done: 10/19/23 09:30
[place]-[facility]-Lbwjnjesrt Assessment Last Done: 10/19/23 09:32
Discharge Date and Time
Print Language: [place] R[place]
--- NOTE | 2023-10-19 10:19 | EDRN ---
14Fr Amador placed per order, patient tolerated and expressed relief in pain. 650ml initial output of clear, yellow urine draining
[2023-10-19 10:31] LABS: Urine Albumin Negative (Neg - Trace); Urine Bilirubin Negative (Negative); Urine Character Clear (Clear); Urine Color Yellow; Urine Glucose 3+ (Negative); Urine Ketone Negative (Negative); Urine Leukocyte Negative (Negative); Urine Nitrite Negative (Negative); Urine Occult Blood Negative (Negative); Urine Specific Gravity 1.015 (<1.030); Urine Urobilinogen Negative (Neg - 1+)
[2023-10-19 10:43] LABS: % Basophils 0.4 % (0-2); % Eosinophils 1.4 % (0-6); % Immature Granulocytes 0.5 % (0-0.5); % Lymphocytes 11.7 % (20.5-51.1); Absolute Basophils 0.1 10^3/uL (0-0.2); Absolute Eosinophils 0.2 10^3/uL (0-0.7); Absolute Immature Granulocytes 0.1 10^3/uL (0-0.05); Absolute Lymphocytes 1.8 10^3/uL (1.2-3.4); Absolute Monocytes 0.9 10^3/uL (0.1-0.6); Absolute Neutrophils 11.9 10^3/uL (1.4-6.5); Hematocrit 39.6 % (39.0-52.0); Hemoglobin 13.3 g/dL (13.0-18.0); Mean Corp Hgb Conc. 33.6 g/dL (33.0-37.0); Mean Corpuscular Hgb 28.1 pg (27.0-31.0); Mean Corpuscular Volume 83.7 fL (80.0-94.0); Mean Platelet Volume 9.5 fL (7.4-10.4); Nucleated Red Blood Cells % 0 % (-); Platelet Count 284 10^3/uL (130-400); Red Blood Cell Count 4.73 10^6/uL (4.70-6.10); Red Cell Dist. Width 15.1 % (11.5-14.5); White Blood Cell Count 14.9 10^3/uL (4.8-10.8)
[2023-10-19 10:59] LABS: Blood Urea Nitrogen 36 mg/dl (9-20); Calcium 9.3 mg/dl (8.4-10.2); Carbon Dioxide 23 mmol/L (22-30); Chloride 103 mmol/L (98-107); Estimated Creatinine Clearance 38 ml/min; Glucose 225 mg/dl (70-99); Sodium 136 mmol/L (135-145); eGFR 37.35
== END 2023-10-19 12:34 | disposition home or self-care (01) ==
LOC: EMR 08:40
PROVIDERS: Nurse Practitioner; EMERGENCY PHYSICIAN Emergency Medicine; FAMILY PHYSICIAN Family Medicine
DX: R33.8 Other retention of urine (principal); R10.30 Lower abdominal pain, unspecified; E78.00 Pure hypercholesterolemia, unspecified; E11.9 Type 2 diabetes mellitus without complications; F03.90 Unspecified dementia, unspecified severity, without behavioral disturbance, psychotic disturbance, mood disturbance, and anxiety; N28.9 Disorder of kidney and ureter, unspecified; I10 Essential (primary) hypertension; Z79.4 Long term (current) use of insulin
CPT/HCPCS: 99284; 51798; 51702; 80048; 81003; 85025; 87077; 87086; 87186; 93005